=== PATIENT | female | born 1960 | race Caucasian/White ===

== ENCOUNTER 2018-04-09 15:23 | Outpatient (CLI) | payer BC ==
--- NOTE | 2018-04-09 16:20 | BD ---
BONE DENSITOMETRY USING DEXA 04/09/18 HISTORY: Postmenopausal screening for osteoporosis. FINDINGS: Lumbar Spine: BMD (g/cm2) L1 0.898 T-Score: -0.8 Z-Score: 0.2 L2 0.911 T-Score: -1.1 Z-Score: 0.1 L3 0.859 T-Score: -2.0 Z-Score: -0.8 L4 0.856 T-Score: -1.9 Z-Score: -0.6 L1-L4 0.879 T-Score: -1.5 Z-Score: -0.3 Femoral Neck: 0.569 T-Score: -2.5 Z-Score: -1.4 Total Femur: 0.761 T-Score: -1.5 Z-Score: -0.7 The ten year fracture risk or major osteoporotic fracture is 8.8% and for hip fracture is 2.7%. Impression: Osteoporosis. POS: [facility]ARR
== END 2018-04-09 15:24 | disposition home or self-care (01) ==
LOC: BICMAMMO 15:23
PROVIDERS: ATTEND Internal Medicine
DX: Z12.31 Encounter for screening mammogram for malignant neoplasm of breast (principal); M85.80 Other specified disorders of bone density and structure, unspecified site; M81.0 Age-related osteoporosis without current pathological fracture
CPT/HCPCS: 77063; 77067; 77080

== ENCOUNTER 2021-01-15 15:50 | Outpatient (CLI) | payer OTHER | END 2021-01-15 15:51 | disposition home or self-care (01) | LOC: BICMAMMO 15:50 | PROVIDERS: ATTEND Internal Medicine | DX: Z12.31 Encounter for screening mammogram for malignant neoplasm of breast (principal) | CPT/HCPCS: 77063; 77067 ==

== ENCOUNTER 2021-06-14 13:55 | Outpatient (CLI) | payer OTHER | END 2021-06-14 13:56 | disposition home or self-care (01) | LOC: TBSIIMAG 13:55 | PROVIDERS: ATTEND Orthopaedic Surgery | DX: M50.11 Cervical disc disorder with radiculopathy, high cervical region (principal) | CPT/HCPCS: 72141 ==